=== PATIENT | male | born 1970 | race Caucasian/White ===

== ENCOUNTER 2017-08-07 18:51 | Emergency (ER) | payer OTHER ==
--- NOTE | 2017-08-07 19:35 | EKG REPORT ---
SEVERITY:- BORDERLINE ECG - SINUS RHYTHM PROBABLE LEFT ATRIAL ABNORMALITY : Confirmed by: Mat Guevara MD 07-Aug-2017 19:34:48
[2017-08-07] MEDS ORDERED: NORMAL SALINE 1000 ML 1,000 ML IV ONE (20:06)
[2017-08-07] MEDS ORDERED: IPRATROPIUM/ALBUTEROL 0.5-2.5 MG/3 ML AMPUL NEB ONE ×3 (20:06→21:56)
[2017-08-07] MEDS ORDERED: METHYLPREDNISOLONE INJ 125 MG/2 ML SDV IV ONE (20:06)
--- NOTE | 2017-08-07 20:09 | ER Document Report ---
ED General - General Chief Complaint: Shortness Of Breath Stated Complaint: SHORTNESS OF BREATH, CHEST PAIN Time Seen by Provider: 08/07/17 19:57 Notes: Patient is a 46-year-old male that comes emergency department for chief complaint of chest congestion, productive cough, shortness of breath, wheezing, and sinus pain/congestion. Symptoms started almost 5 days ago. He denies fevers. He is a daily smoker, also has a history of arthritis and chronic pain , is on pain management. Friend at bedside states that he was coughing, was trying to use inhaler, appeared to have a muscle spasm, and appeared to pass out for about a minute earlier today. No seizure activity, when they went to him when they realized he had probably passed out he was arousable. TRAVEL OUTSIDE OF THE [place] IN LAST 30 DAYS: No - Related Data Allergies/Adverse Reactions: No Known Allergies Allergy (Verified 08/07/17 18:52) Past Medical History - General Information source: Patient - Social History Smoking Status: Current Every Day Smoker Chew tobacco use (# tins/day): No Smoking Education Provided: Yes - <3 min Frequency of alcohol use: Social Drug Abuse: None Family History: Reviewed & Not Pertinent Patient has suicidal ideation: No Patient has homicidal ideation: No - Past Medical History Cardiac Medical History: Reports: Hx Hypercholesterolemia Denies: Hx Coronary Artery Disease, Hx Heart Attack, Hx Hypertension Pulmonary Medical History: Denies: Hx Asthma, Hx Bronchitis, Hx COPD, Hx Pneumonia Neurological Medical History: Denies: Hx Cerebrovascular Accident, Hx Seizures Renal/ Medical History: Denies: Hx Peritoneal Dialysis GI Medical History: Reports: Hx Gastroesophageal Reflux Disease Musculoskeltal Medical History: Reports Hx Arthritis - bilt shoulders Past Surgical History: Reports: Hx Orthopedic Surgery - 3x shoulder. Denies: Hx Pacemaker - Immunizations Hx Diphtheria, Pertussis, Tetanus Vaccination: Yes Review of Systems - Review of Systems Constitutional: No symptoms reported EENT: See HPI Cardiovascular: See HPI Respiratory: See HPI Gastrointestinal: No symptoms reported Genitourinary: No symptoms reported Male Genitourinary: No symptoms reported Musculoskeletal: No symptoms reported Skin: No symptoms reported Hematologic/Lymphatic: No symptoms reported Neurological/Psychological: See HPI Physical Exam - Vital signs Vitals: Temp Pulse Resp BP Pulse Ox 98.3 F 55 L 18 124/78 98 08/07/17 18:55 08/07/17 18:55 08/07/17 18:55 08/07/17 18:55 08/07/17 18:55 Interpretation: Normal - General General appearance: Alert In distress: None - HEENT Head: Normocephalic, Atraumatic Eyes: Normal Pupils: PERRL - Respiratory Respiratory status: No respiratory distress. No: Respiratory distress, Labored , Tachypnea Chest status: Nontender Breath sounds: Decreased air movement, Nonproductive cough, Rhonchi, Wheezing Chest palpation: Normal - Cardiovascular Rhythm: Regular. No: Tachycardia, Bradycardia Heart sounds: Normal auscultation, S1 appreciated, S2 appreciated Murmur: No - Abdominal Inspection: Normal Distension: No distension Bowel sounds: Normal Tenderness: Nontender. No: Tender, Guarding Organomegaly: No organomegaly - Back Back: Normal, Nontender. No: Tender, CVA tenderness - Extremities General upper extremity: Normal inspection, Nontender, Normal color, Normal ROM , Normal temperature General lower extremity: Normal inspection, Nontender, Normal color, Normal ROM , Normal temperature, Normal weight bearing. No: Patsy's sign - Neurological Neuro grossly intact: Yes Cognition: Normal Orientation: AAOx4 [place] Coma Scale Eye Opening: Spontaneous [place] Coma Scale Verbal: Oriented [place] Coma Scale Motor: Obeys Commands [place] Coma Scale Total: 15 Speech: Normal Motor strength normal: LUE, RUE, LLE, RLE Sensory: Normal - Psychological Associated symptoms: Normal affect, Normal mood - Skin Skin Temperature: Warm Skin Moisture: Dry Skin Color: Normal Course - Re-evaluation Re-evalutation: Patient was scattered rhonchi, wheezes, congested cough. No tachypnea, hypoxia , or labored breathing. Patient appears generally uncomfortable but nontoxic in appearance. Chest x-ray suggestive of early developing pneumonia on top of patient's upper respiratory infection. CBC unremarkable, chemistry shows hypokalemia but magnesium is normal. Patient was given magnesium, Solu-Medrol, breathing treatments. Patient significantly improved afterwards, still has some scattered rhonchi. On reevaluation's patient remains unchanged. He ambulates without any difficulty. No hypoxia on room air. Patient will be discharged with prednisone, doxycycline, discussed smoking cessation, discussed return precautions, discussed primary care follow-up. Patient and significant other state understanding and agreement. - Vital Signs Vital signs: Temp Pulse Resp BP Pulse Ox 98.0 F 55 L 14 114/71 97 08/08/17 00:20 08/07/17 18:55 08/08/17 00:03 08/08/17 00:03 08/08/17 00:03 - Laboratory Result Diagrams: 08/07/17 20:28 08/07/17 20:28 Laboratory results interpreted by me: 08/07/17 08/07/17 20:28 20:28 Eosinophils % 7.8 H Absolute Eosinophils 0.7 H Potassium 3.1 L Discharge - Discharge Clinical Impression: Productive cough, Wheezing Condition: Stable Disposition: HOME, SELF-CARE Additional Instructions: Your workup is consistent with bronchitis and likely an early developing pneumonia. Take doxycycline and prednisone as prescribed. Drink plenty fluids and rest. Your potassium was slightly low, you have been given supplementation, increase potassium in your diet. Follow-up with primary care for additional management. Stop smoking. Return if you worsen including difficulty breathing, spiking fever, or any other concerning or worsening symptoms. Prescriptions: Doxycycline Hyclate 100 mg PO BID #14 capsule Prednisone 60 mg PO DAILY #15 tablet Referrals: TANISHA GILLIAM MD [Primary Care Provider] - Follow up as needed
[2017-08-07 20:47] LABS: ABSOLUTE BASOPHILS # (AUTO) 0.1 10^3/uL (0.0-0.2); ABSOLUTE EOSINOPHILS # (AUTO) 0.7 10^3/uL (0.0-0.6); ABSOLUTE LYMPHOCYTES (AUTO) 3.5 10^3/uL (0.5-4.7); ABSOLUTE MONOCYTES (AUTO) 0.5 10^3/uL (0.1-1.4); ABSOLUTE NEUT (AUTO) 4.4 10^3/uL (1.7-8.2); BASOPHILS % (AUTO) 0.9 % (0-2); EOSINOPHILS % (AUTO) 7.8 % (0-6); HEMATOCRIT 42.4 % (37.9-51.0); HGB HCT DIFFERENCE 2.6; LYMPHOCYTES % (AUTO) 37.7 % (13-45); MEAN CORPUSCULAR HEMOGLOBIN 32.8 pg (27.0-33.4); MEAN CORPUSCULAR HGB CONC 35.3 g/dL (32.0-36.0); MEAN CORPUSCULAR VOLUME 93 fl (80-97); MONOCYTES % (AUTO) 5.9 % (3-13); RED BLOOD COUNT 4.56 10^6/uL (4.35-5.55); RED CELL DISTRIBUTION WIDTH 13.7 % (11.5-14.0); SEGMENTED NEUTROPHILS % (AUTO) 47.7 % (42-78); WHITE BLOOD COUNT 9.2 10^3/uL (4.0-10.5)
--- NOTE | 2017-08-07 21:03 | RADIOLOGY REPORT (SQ) ---
EXAM DESCRIPTION: CHEST PA/LAT COMPLETED DATE/TIME: 08/07/2017 8:48 pm REASON FOR STUDY: productive cough, shortness of breath COMPARISON: 10/09/2011. EXAM PARAMETERS: NUMBER OF VIEWS: two views TECHNIQUE: Digital Frontal and Lateral radiographic views of the chest acquired. RADIATION DOSE: NA LIMITATIONS: none FINDINGS: LUNGS AND PLEURA: Faint basilar infiltrate best visualized on the lateral view. Difficult to visualize on the frontal view although may be in the retrocardiac left base. No pleural effusion . No pneumothorax. MEDIASTINUM AND HILAR STRUCTURES: No masses or contour abnormalities. HEART AND VASCULAR STRUCTURES: Heart normal size. No evidence for failure. BONES: No acute findings. HARDWARE: Hardware in the cervical spine. OTHER: No other significant finding. IMPRESSION: FAINT BASILAR INFILTRATE SUSPICIOUS FOR PNEUMONIA. TECHNICAL DOCUMENTATION: JOB ID: [id number] [employer]- All Rights Reserved
[2017-08-07 21:20] LABS: ANION GAP 8 (5-19); BLOOD UREA NITROGEN 9 mg/dL (7-20); CALCIUM 8.8 mg/dL (8.4-10.2); CARBON DIOXIDE 30 mmol/L (22-30); CHLORIDE 105 mmol/L (98-107); CREATININE RESULT 0.97 mg/dL (0.52-1.25); GLUCOSE 94 mg/dL (75-110); POTASSIUM 3.1 mmol/L (3.6-5.0); SODIUM 143.4 mmol/L (137-145)
[2017-08-07] MEDS: MAGNESIUM SULFATE/D5W 1 GM/100 ML RTUPB IV SCH ×2 (21:58→22:36)
[2017-08-08] MEDS ORDERED: DOXYCYCLINE HYCLATE 100 MG TABLET PO ONE (00:12)
[2017-08-08] MEDS ORDERED: POTASSIUM CHLORIDE 10 MEQ TABLET.SA PO ONE (00:12)
[2017-08-08 00:16] VITALS: BP 114/71
== END 2017-08-08 00:25 | disposition home or self-care (01) ==
LOC: ER 18:51
DX: R05 Cough (principal); R06.2 Wheezing; R09.81 Nasal congestion; R06.02 Shortness of breath; E87.6 Hypokalemia; M19.90 Unspecified osteoarthritis, unspecified site; G89.29 Other chronic pain; F17.200 Nicotine dependence, unspecified, uncomplicated; Z71.6 Tobacco abuse counseling
CPT/HCPCS: 93005; 94640 ×2; 99285; 96361; 96375; 96365; 36415; 83735; 85025; 80048; 71020; 93010; J2930; J3475; J7030; J7620